=== PATIENT | male | born 1955 | race Caucasian/White ===

== ENCOUNTER 2025-01-14 09:23 | Outpatient (AMB) | payer OTHER, SELFPAY ==
--- NOTE | 2025-01-14 09:24 | MHC.OFFVIS ---
Vital Signs 01/14/25 09:30 Height 5 ft 6 in Weight 194 lb BMI 31.3 BP 141/65 H Blood Pressure Location Rt brachial Position Sitting Respiration 16 Pulse 65 Pulse Source Pulse Oximeter Pulse Oximetry (%) 98 Oxygen Delivery Method Room Air Intake Visit Reasons: Bilateral PDN: Nevro Consult [employer]ush Man Required: No Accompanied by: Life Partner Allergies No Known Allergies Allergy (Verified 01/14/25 09:32) HPI Comments Details: Garfield Jin is very pleasant 69 years old gentleman [facility] [employer] who presents in my office with request to perform Nevro spinal cord stimulator to treat his diabetic polyneuropathy. She is suffering from diabetes for 20 years. She reports neuropathy for the past 7 years. He reports hemoglobin A1c 6.7 at this time. However neuropathy is not getting better. He reports pain in bilateral feet severe enough which prevents him from sleep normally. He is able to do activities of daily living he is able to take care of himself but he can not function normally. He is retired individual he has [facility] [employer] . In terms of tissue damage he describes his pain as pulsing, throbbing, pounding, jumping, flushing, shooting, stabbing, lancinating, sharp, cutting, lacerating, pinching, cramping, crushing, tingling, stinging, dull, sore, hurting, aching, heavy, spreading, radiating, piercing sensation. He tried conservative therapy, including topical applications of NSAIDs such as diclofenac, he is treating his diabetic neuropathy with metformin, he is taking pregabalin 75 mg b.i.d. he tried gabapentin which did not help his pain. He is taking antidepressant medications which helped his pain minimally. He had chiropractic manipulation and acupuncture to help his pain and it did not help his pain. He never received any injections. 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 He is no longer cancer patient. His past surgical history significant for fracture of bilateral wrists which was treated with plates and screws. He denies smoking cigarettes, he denies drinking alcohol on regular basis, he drinks regular coffee twice a day, he denies soda, he admits cannabis once a month. Review of Systems Const All systems reviewed & are unremarkable except as noted in HPI and below ENT Reports Normal hearing present Neuro Reports Normal hearing present, Denies Abnormal speech present, Denies confusion and Denies Sensory deficit (Neuro) Psych Denies confusion Physical Exam Vital Signs: Last Vital Signs Pulse 65 01/14/25 09:30 Resp 16 01/14/25 09:30 BP 141/65 H 01/14/25 09:30 Pulse Ox 98 01/14/25 09:30 Oxygen Delivery Method Room Air 01/14/25 09:30 BMI result Body Mass Index 31.3 Const General: no acute distress; No confusion Orientation/consciousness: patient oriented x3 and No confusion Eyes General: appearance normal, both eyes and all related structures Pupils: Equal, round and reactive pupils present EOM: EOMs intact bilaterally Neck Neck: Yes full ROM Chest Chest palpation & inspection: normal inspection of the chest Resp Effort & Inspection: normal respiratory effort, able to speak in complete sentences, normal respiratory pattern, no audible wheezes and no cough Cardio Jugular venous distension: no JVD GI Inspection: Yes normal to inspection Neuro General: patient oriented x3, gait normal and No confusion Cranial nerves: Yes CN's II-XII intact bilaterally, Yes Equal, round and reactive pupils present, Yes Normal hearing present and Yes Ability to bilaterally elevate shoulders present Speech: No Abnormal speech present Gait exam (Neuro): Normal gait present Motor exam (neuro): 5/5 motor strength present throughout Sensory Exam: No Sensory deficit (Neuro) Extrem General: No pedal edema Psych Speech and movement: Normal speech and movement present Affect: normal affect Attitude: cooperative Thought process: Normal thought process present Thought content: Normal thought content present Insight: Good insight present (Psych) Judgement: Good judgement present (Psych) Assessment & Plan Assessment & Plan (1) Diabetic polyneuropathy: Code(s): E11.42 - Type 2 diabetes mellitus with diabetic polyneuropathy Category: Medical (2) Chronic pain syndrome: Code(s): G89.4 - Chronic pain syndrome Category: Medical Plan This patient was diagnose with cluster B personality disorder as well as history of sexually sit active provocative behavior. Rapidly shifting emotions, obsessive-compulsive disorder, manipulative behavior and impulsivity were also diagnose with the patient.. It remains to be seen whether or not he will be able to pass psychological evaluation however the psychological evaluation page template was given to the patient to provide to his mental health provider to fill it up. If patient will be approved for a trial of Nevro SCS I will schedule him for the procedure as soon as possible. However if there is contraindications for implantable devices for this patient I can offer this patient [employer] application. Coding Level of Care Code New Pt Level 3 (10376) Diagnoses Diabetic polyneuropathy E11.42 Chronic pain syndrome G89.4
[2025-01-14 09:30] VITALS: BP 141/65; PULSE 65; RESP 16; O2SAT 98; BMI 31.3
--- OUTSIDE RECORDS SUMMARY | 2025-01-14 10:21 | XMS_ITS | Data Portability ---
Author Organization [place] [facility] - IP Address [address] [place] [address] Assessment No assessment recorded. Plan of Treatment Reminders Order Date Submit Date Provider Last Modified By Organization Details Last Modified Time Details Appointments [facility] 2031 09:30A M Chemman[facility] _procedur es Not available Not available Not available Lab None recorded. Referral None recorded. Procedures None recorded. Surgeries None recorded. Imaging None recorded. Medication Orders Talicia 10 mg-250 mg-12.5 mg capsule,i mmediate - delay release 2021 022 [facility]/Pharmacy #[id number], [address] [place], [address], 06/08/2021 10:31:14 Patient TargetsNo targets recorded. Patient InstructionsNo instructions recorded. Reason for Referral None Reported. Results Created Date Observation Date Name Description Value Unit Range Abnormal Flag Note LastModifiedBy Organization Detail LastModifiedTime Result Notes None recorded. Medical Equipment None Reported. Allergies No known drug allergies Medications Name Sig Start Date Stop Date Status Note LastModified by Organization Details LastModified Time amoxicillin 500 mg capsule TAKE 2 CAPSULES BY MOUTH TWICE A DAY FOR 14 DAYS. active Not Available Not Available No t Available methocarbamo l 500 mg tablet TAKE 1 TABLET TWICE A DAY BY ORAL ROUTE NEEDED. active Not Available Not Available No t Available atorvastatin 20 mg tablet TAKE 1 TABLET BY MOUTH EVERY DAY active Not Available Not Available No t Available clarithromyc in 500 mg tablet TAKE 1 TABLET BY MOUTH TWICE A DAY FOR 14 DAYS active Not Available Not Available No t Available lisinopril 20 mg tablet active Not Available Not Available Not Available prednisone 20 mg tablet active Not Available Not Available Not Available sertraline 100 mg tablet TAKE 2 TABLETS BY MOUTH EVERY DAY FOR 90 DAYS active Not Available Not Available No t Available omeprazole 40 mg capsule,abby yed release TAKE 1 CAPSULE BY MOUTH EVERY DAY 2021 active Not Available Not Available Not Avai lable amoxicillin 500 mg tablet Take 2 tablets twice a day by oral route for 14 days. 2021 active Not Available Not Available Not Avai lable tamsulosin 0.4 mg capsule TAKE 1 CAPSULE BY MOUTH EVERY DAY FOR 90 DAYS active Not Available Not Available No t Available benzonatate 100 mg capsule TAKE 1 CAPSULE BY MOUTH TWICE A DAY active Not Available Not Available No t Available levothyroxin e 50 mcg tablet TAKE 1 TABLET BY MOUTH EVERY DAY IN THE MORNING active Not Available Not Available No t Available metformin 1,000 mg tablet TAKE 1 TABLET TWICE A DAY BY ORAL ROUTE FOR 90 DAYS. active Not Available Not Available No t Available omeprazole 20 mg capsule,abby yed release TAKE 1 CAPSULE BY MOUTH TWICE A DAY FOR 14 DAYS active Not Available Not Available No t Available budesonide 0.5 mg/2 mL suspension for nebulization INHALE 2 ML VIA NEBULIZER TWICE A DAY active Not Available Not Available Not Available lisinopril 40 mg tablet TAKE 1 TABLET BY MOUTH EVERY DAY active Not Available Not Available No t Available oxycodone 5 mg tablet active Not Available Not Available No t Available escitalopram 20 mg tablet TAKE 1 TABLET BY MOUTH DAILY active Not Available Not Available Not Available fenofibrate 160 mg tablet TAKE 1 TABLET BY MOUTH EVERY DAY active Not Available Not Available No t Available pregabalin 50 mg capsule TAKE 1 CAPSULE BY MOUTH THREE TIMES A DAY FOR 90 DAYS active Not Available Not Available Not Available GaviLyte-G 236 gram-22.74 gram-6.74 gram-5.86 gram oral solution TAKE 4000 ML BY MOUTH. active Not Available Not Available No t Available OneTouch Verio test strips active Not Available Not Available Not Available Trulicity 0.75 mg/0.5 mL subcutaneous pen injector INJECT 0.5 ML EVERY WEEK SUBCUTANEOU SLY FOR 90 DAYS. active Not Available Not Available No t Available Spiriva Respimat 2.5 mcg/actuatio n solution for inhalation INHALE 2 PUFFS INTO THE LUNGS EVERY DAY active Not Available Not Available No t Available Talicia 10 mg-250 mg-12.5 mg capsule,imme diate - delay release Take 4 capsules every 8 hours by oral route for 14 days. 2021 active Not Available Not Available Not Avai kashmir Hawkins Ellipta 200 mcg-62.5 mcg-25 mcg powder for inhalation INHALE 1 PUFF BY MOUTH EVERY DAY active Not Available Not Available No t Available Vitals None Recorded Social History None recorded. Functional Status None recorded. Mental Status None recorded. Family History Nothing Reported. Medical History No medical history recorded. Past Encounters Encounter ID Performer Location Encounter Start Date Encounter Closed Date Diagnosis/Indication Diagnosis SNOMED-CT Code Diagnosis ICD10 Code Diagnosis IMO Codes Diagnosis Note [id number] Myla Brunner MD [facility] [address], [address] [place] [address] 06/08/2021 10:10:14 06/08/2021 10:54:48 Gastroesophageal reflux disease without esophagitis 695032367 K21.9 Helicobact er pylori gastrointestinal tract infection [id number] B96.81 [id number] Myla Brunner MD [facility] [address], [address] [place] [address] 06/29/2021 19:40:13 06/29/2021 19:45:47 Gastroesophageal reflux disease without esophagitis 404875460 K21.9 [id number] Myla Brunner MD [facility] [address], [address] [place] [address] 08/19/2021 17:13:16 08/19/2021 17:17:02 Gastroesophageal reflux disease without esophagitis 734070263 K21.9 Health Concerns Section Related Observation LastModified by Organization Detai ls LastModified Time None Recorded Concern Status LastModified by Organization Details LastModified Time None Recorded Advance Directives Directive None Recorded Payers Insurance Date Sequence Insurance Name Policy Number Policy Mike Covered Member ID Mike Member ID Guarantor Name 07/11/2022 1 [facility] [employer] [facility] ([id number]) [id number] Garfield Huddleston [id number] Garfield Huddleston
--- OUTSIDE RECORDS SUMMARY | 2025-01-14 10:22 | XMS_ITS | Data Portability ---
Author Organization [facility] UROLOGY Address [address] [place] [address] Care Team Providers Care Share Holder Name Role Phone PIEDAD NEGRON Primary Care Provider [phone] PIEDAD NEGRON Referring Provider Assessment Encounter Date Assessment Date Assessment LastModified by Organization Details LastModified Time 06/23/2021 06/23/2021 Instructions, orders, and treatment plan, were discussed and reviewed with the patient during the visit. Follow up appointment tickler created minutes visit time. real-time video communication counseling and coordinating care. Not available 06/23/2021 14:32:09 07/18/2021 07/18/2021 Instructions, orders, and treatment plan, were discussed and reviewed with the patient during the visit. Follow up appointment arranged 30 minutes visit time. telephonic communication counseling and coordinating care. Not available 07/18/2021 11:31:01 08/15/2021 08/15/2021 Reminder again given for colonoscopy. Importance of having colonoscopy for colon cancer screening discussed in detail with patient. Referral already made. Not available 08/15/2021 16:08:05 Plan of Treatment Reminders Order Date Submit Date Provider Last Modified By Organization Details Last Modified Time Details Appointments None recorded. Lab lipid panel, serum 2021 023 [facility], [address], [address], [place], [address], 3 15:56:48 CBC w/ auto diff 2021 023 [facility], [address], [place] [address], [place], [address], 3 15:56:49 HbA1c (hemoglobin A1c), blood 2021 023 [facility], [address], [place] [address], [place], [address], 3 15:56:49 microalbumi n/creatinin e, mass ratio, urine 2021 023 [facility], [address], [place] [address], [place], [address], 3 15:56:50 CMP, serum or plasma 2021 023 [facility], [address], [place] [address], [place], [address], 3 15:56:48 TSH, serum or plasma 2021 023 [facility], [address], [place] [address], [place], [address], 3 15:56:49 T4, free, serum 2021 023 [facility], [address], [place] [address], [place], [address], 3 15:56:49 alpha-1 antitrypsin (aat) mutation, blood/tissu e 2021 022 [facility], [address], [place] [address], [place], [address], 2 13:23:04 Referral None recorded. Procedures None recorded. Surgeries None recorded. Imaging US, upper back - Lipoma like lesion on Rt upper back, next to Right Scapula 2021 022 [facility] (Imaging), [address], [place], [address], 12:05:56 Medication Orders sertraline 200 mg capsule 2021 022 [facility] #[id number], [address] [place], [address], 16:00:29 Patient TargetsNo targets recorded. Patient Instructions Encounter Date Encounter Id Patient Instructions Last Modified By Organization Details Last Modified Time 06/23/2021 [id number] chronic cough: care instructions Not available 06/23/2021 14:26:59 07/18/2021 [id number] chronic cough: care instructions Not available 07/18/2021 11:32:05 08/15/2021 [id number] learning about chronic bronchitis Not available 08/15/2021 16:06:37 high cholesterol : care instructions Not available 08/15/2021 16:06:37 chronic lymphocytic leukemia: care instructions Not available 08/15/2021 16:06:38 type 2 diabetes: care instructions Not available 08/15/2021 16:06:37 high blood pressure: care instructions Not available 08/15/2021 16:06:38 hypothyroidism: care instructions Not available 08/15/2021 16:06:38 08/23/2021 [id number] psoriasis: care instructions [email or web address] Not available 08/23/2021 16:19:05 Reason for Referral None Reported. Results Created Date Observation Date Name Description Value Unit Range Abnormal Flag Note LastModifiedBy Organization Detail LastModifiedTime 07/29/19 22 07/29/2021 CBC(H /H,RB C,WBC ,PLT) white blood cell count 12.3 thous and/u L 3.8-10 .8 high Not Available [facility] [address], [place], [address], 07/29/2021 05:57:08 07/29/19 22 07/29/2021 CBC(H /H,RB C,WBC ,PLT) red blood cell count 4.76 tiff on/uL 4.20-5 .80 normal Not Available [facility] [place] [facility] [address], [place], [address], 07/29/2021 05:57:08 07/29/19 22 07/29/2021 CBC(H /H,RB C,WBC ,PLT) hemoglobin 13.3 g/dL 13.2-1 7.1 normal Not Available [facility] [place] [facility] [address], [place], [address], 07/29/2021 05:57:08 07/29/19 22 07/29/2021 CBC(H /H,RB C,WBC ,PLT) hematocrit 40.8 % 38.5-5 0.0 normal Not Available [facility] [address], [place], [address], 07/29/2021 05:57:08 07/29/19 22 07/29/2021 CBC(H /H,RB C,WBC ,PLT) MCV 85.7 fL 80.0-1 00.0 normal Not Available [facility] [address], [place], [address], 07/29/2021 05:57:08 07/29/19 22 07/29/2021 CBC(H /H,RB C,WBC ,PLT) MCH 27.9 pg 27.0-3 3.0 normal Not Available [facility] [address], [place], [address], 07/29/2021 05:57:08 07/29/19 22 07/29/2021 CBC(H /H,RB C,WBC ,PLT) MCHC 32.6 g/dL 32.0-3 6.0 normal Not Available [facility] [address], [place], [address], 07/29/2021 05:57:08 07/29/19 22 07/29/2021 CBC(H /H,RB C,WBC ,PLT) RDW 12.6 % 11.0-1 5.0 normal Not Available [facility] [address], [place], [address], 07/29/2021 05:57:08 07/29/19 22 07/29/2021 CBC(H /H,RB C,WBC ,PLT) platelet count 134 thous and/u L 140-40 0 low Not Available [facility] [address], [place], [address], 07/29/2021 05:57:08 07/29/19 22 07/29/2021 CBC(H /H,RB C,WBC ,PLT) MPV 10.4 fL 7.5-12 .5 normal Not Available [facility] [address], [place], [address], 07/29/2021 05:57:08 07/29/19 22 07/29/2021 LIPID PNL W/RFL DLDL cholesterol, total 136 mg/dL <200 normal Not Available [facility] [address], [place], [address], 07/29/2021 07:31:46 07/29/19 22 07/29/2021 LIPID PNL W/RFL DLDL HDL cholesterol 37 mg/dL > or = 40 low Not Available [facility] [address], [place], [address], 07/29/2021 07:31:46 07/29/19 22 07/29/2021 LIPID PNL W/RFL DLDL triglyceride s 367 mg/dL <150 high If a non-f astin g speci men was colle cted, consi teresa repea t trigl yceri de testi ng on a fasti ng speci men if clini marly indic ated. Aris kaur et al. J. of Clin. Lipid ol. 2015; 9:129 -169. Not Available [facility] [address] [place], [address], 07/29/2021 07:31:46 07/29/19 22 07/29/2021 LIPID PNL W/RFL DLDL LDL-choleste rol 60 mg/dL _(deo c) normal Refer ence range : <100 Nelly able range <100 mg/dL for prima ry preve ntion ; <70 mg/dL for patie nts with CHD or diabe tic patie nts with > or = 2 CHD risk facto rs. LDL-C is now calcu lated using the Marianna n-Hop kins calcu rian n, which is a valid ated novel metho d provi ding phyllis r accur acy than the Fried coral equat ion in the estim ation of LDL-C . Marianna carney SS et al. LOIDA. 2013; 310(1 9): 2061- 2068 (http ://ed ucati on.Qu Juliette Three Ring. com/f aq/FA Q164) Not Available [facility] [address], [address], 07/29/2021 07:31:46 07/29/19 22 07/29/2021 LIPID PNL W/RFL DLDL chol/HDLC ratio 3.7 (calc ) <5.0 normal Not Available [facility] [address], [place], [address], 07/29/2021 07:31:46 07/29/19 22 07/29/2021 LIPID PNL W/RFL DLDL non HDL cholesterol 99 mg/dL _(deo c) <130 normal For patie nts with diabe inga plus 1 major ASCVD risk facto r, treat ing to a non-H DL-C goal of <100 mg/dL (LDL- C of <70 mg/dL ) is brittanie fuller n. Not Available [facility] [place] [facility] [address], [place], [address], 07/29/2021 07:31:46 07/29/19 22 07/29/2021 COMP META PNL glucose 200 mg/dL 65-99 high Fasti ng refer ence inter cat For someo ne witho ut known diabe inga, a gluco se value >125 mg/dL indic ates that they may have diabe inga and this shoul d be confi rmed with a follo w-up test. Not Available [facility] [place] [facility] [address], [place], [address], 07/29/2021 07:31:47 07/29/19 22 07/29/2021 COMP META PNL urea nitrogen (BUN) 31 mg/dL 7-25 high Not Available [facility] [place] [facility] [address], [place], [address], 07/29/2021 07:31:47 07/29/19 22 07/29/2021 COMP META PNL creatinine 1.39 mg/dL 0.70-1 .25 high For patie nts >49 years of age, the refer ence limit for Creat inine is appro ximat diamond 13% highe r for peopl e ident ified as Afric an-Am alberto n. Not Available [facility] [place] [facility] [address], [place], [address], 07/29/2021 07:31:47 07/29/19 22 07/29/2021 COMP META PNL eGFR non-afr. nicaraguan 53 mL/mi n/1.7 3m2 > or = 60 low Not Available [facility] [place] [facility] [address], [place], [address], 07/29/2021 07:31:47 07/29/19 22 07/29/2021 COMP META PNL eGFR 62 mL/mi n/1.7 3m2 > or = 60 normal Not Available [facility] [address], [place], [address], 07/29/2021 07:31:47 07/29/19 22 07/29/2021 COMP META PNL BUN/creatini ne ratio 22 (calc ) 6-22 normal Not Available [facility] [address], [place], [address], 07/29/2021 07:31:47 07/29/19 22 07/29/2021 COMP META PNL sodium 139 mmol/ L 135-14 6 normal Not Available [facility] [address], [place], [address], 07/29/2021 07:31:47 07/29/19 22 07/29/2021 COMP META PNL potassium 5.0 mmol/ L 3.5-5. 3 normal Not Available [facility] [address], [place], [address], 07/29/2021 07:31:47 07/29/19 22 07/29/2021 COMP META PNL chloride 103 mmol/ L 98-110 normal Not Available [facility] [address], [place], [address], 07/29/2021 07:31:47 07/29/19 22 07/29/2021 COMP META PNL carbon dioxide 26 mmol/ L 20-32 normal Not Available [facility] [address], [place], [address], 07/29/2021 07:31:47 07/29/19 22 07/29/2021 COMP META PNL calcium 9.7 mg/dL 8.6-10 .3 normal Not Available [facility] [address], [place], [address], 07/29/2021 07:31:47 07/29/19 22 07/29/2021 COMP META PNL protein, total 6.9 g/dL 6.1-8. 1 normal Not Available [facility] [address], [place], [address], 07/29/2021 07:31:47 07/29/19 22 07/29/2021 COMP META PNL albumin 4.3 g/dL 3.6-5. 1 normal Not Available [facility] [address], [place], [address], 07/29/2021 07:31:47 07/29/19 22 07/29/2021 COMP META PNL globulin 2.6 g/dL_ (calc ) 1.9-3. 7 normal Not Available [facility] [address], [place], [address], 07/29/2021 07:31:47 07/29/19 22 07/29/2021 COMP META PNL albumin/glob ulin ratio 1.7 (calc ) 1.0-2. 5 normal Not Available [facility] [address], [place], [address], 07/29/2021 07:31:47 07/29/19 22 07/29/2021 COMP META PNL bilirubin, total 0.3 mg/dL 0.2-1. 2 normal Not Available [facility] [address], [place], [address], 07/29/2021 07:31:47 07/29/19 22 07/29/2021 COMP META PNL alkaline phosphatase 47 U/L 35-144 normal Not Available [facility] [place] [facility] [address], [place], [address], 07/29/2021 07:31:47 07/29/19 22 07/29/2021 COMP META PNL AST 28 U/L 10-35 normal Not Available [facility] [place] [facility] [address], [place], [address], 07/29/2021 07:31:47 07/29/19 22 07/29/2021 COMP META PNL ALT 33 U/L 9-46 normal Not Available [facility] [place] [facility] [address], [place], [address], 07/29/2021 07:31:47 07/29/19 22 07/29/2021 TSH TSH 4.08 mIU/L 0.40-4 .50 normal Not Available [facility] [place] [facility] [address], [place], [address], 07/29/2021 07:31:48 07/29/19 22 07/29/2021 T4, FREE T4, free 1.2 NG/dL 0.8-1. 8 normal Not Available [facility] [place] [facility] [address], [place], [address], 07/29/2021 07:31:49 07/29/19 22 07/29/2021 HEMOG LOBIN A1C hemoglobin A1C 7.2 %_of_ total _HGB <5.7 high For someo ne witho ut known diabe inga, a hemog lobin A1c value of 6.5% or great er indic ates that they may have diabe inga and this shoul d be confi rmed with a follo w-up test. For someo ne with known diabe inga, a value <7% indic ates that their diabe inga is well contr olled and a value great er than or equal to 7% indic ates subop timal contr ol. A1c targe ts shoul d be indiv idual ized based on durat ion of diabe inga, age, comor bid condi tions , and other consi derat ions. Curre ntly, no conse nsus exist s tania tillman use of hemog lobin A1c for diagn osis of diabe inga for child nicolás. Not Available [facility] [place] [facility] [address], [place], [address], 07/29/2021 08:18:47 07/29/19 22 07/29/2021 ALB, RAND UR W/CR creatinine, random urine 132 mg/dL 20-320 normal Not Available [facility] [place] [facility] [address], [place], [address], 07/29/2021 18:39:57 07/29/19 22 07/29/2021 ALB, RAND UR W/CR albumin, urine 198.7 mg/dL normal Verif ied by repea t morgan sis. Refer ence Range Not estab lishe d Not Available [facility] [place] [facility] [address], [place], [address], 07/29/2021 18:39:57 07/29/19 22 07/29/2021 ALB, RAND UR W/CR albumin/crea tinine ratio, random urine 1505 mcg/m g_cre at <30 high The ADA defin es abnor malit ies in album in excre tion as follo ws: Album inuri a Categ ory Resul t (mcg/ mg creat inine ) Kristin l to Mildl y incre ased <30 Moder ately incre ased 30-29 9 Sever diamond incre ased > OR = 300 The ADA recom mends that at least two of three speci mens colle cted withi n a 3-6 month perio d be abnor mal befor e consi roxana g a patie nt to be withi n a diagn ostic categ ory. Not Available [facility] [place] [facility] [address], [place], [address], 07/29/2021 18:39:57 07/29/19 22 08/08/2021 AAT AND MUTAT ION ANL A-1 antitrypsin mutation SEE BELOW RESUL T: POSIT PRATEEK FOR ONE COPY OF THE S ALLEL E (MS) INTER PRETA TION: Molec ular morgan sis indic ates that the patie nt is posit prateek for one copy of the S allel e in the alpha -1-an titry psin (PI) gene. If this patie nt has kristin l alpha -1-an titry psin level s, he/sh e shoul d not be at risk for devel oping sympt oms relat ed to alpha -1-an titry psin defic iency . Branden ic testi ng of other at-ri sk relat judson shoul d be consi dered . Branden ic couns eling may also be benef icial for this patie nt and other membe rs of his/h er famil y. Labor atory testi ng super vised and resul ts monit ored by Vidal willett, Ph.D. , FACMG , HCLD, CGMBS . Alpha -1-an titry psin defic iency is a relat ively commo n autos omal reces sive condi tion. The two most commo n defic iency allel es in the alpha -1-an titry psin gene (prot ease inhib itor locus , PI) are desig nated PI*Z and PI*S, and the kristin l allel e is desig nated PI*M. The PI*Z/ PI*Z, PI*S/ PI*Z, and PI*S/ PI*S genot ypes assoc iated with decre ased serum PI level s that are equiv alent to appro ximat diamond 10-20 %, 35-40 %, and 50-60 % of kristin l, respe ctive ly. The PI*Z/ PI*Z and PI*S/ PI*Z genot ypes are repor ale to be assoc iated with an incre ased risk of liver disea se in child duff, and chron ic obstr uctiv e pulmo nary disea se (COPD ) and emphy sema in adult life. The PI*M/ PI*Z, and PI*M/ PI*S genot ypes are also assoc iated with decre ased serum PI level s but these level s, and the PI level s assoc iated with the PI*S/ PI*S genot ype, are appar ently adequ ate to prote ct the lungs in the vast major ity of indiv idual s. Indiv idual s with the PI*M/ PI*Z genot ype may have decre ased pulmo nary funct ion, and may be at incre ased risk for COPD, espec ially if they smoke . It shoul d be noted that serum alpha -1-an titry psin level s can be induc ed by a wide varie ty of condi tions that inclu de pregn stephen, infec tion, numer ous infla mmato ry condi tions , cance r, and liver disea se. Level s of alpha -1-an titry psin may be reduc ed by other condi tions . There fore, immun ologi deo and funct ional deter minat ions of serum alpha -1-an titry psin level s may not corre late with the indiv idual 's PI genot ype. The PI*Z, PI*S, and PI*M allel es are detec ale by multi plex polym erase chain react ion (PCR) ampli ficat ion of speci fic regio ns of the PI gene, follo wed by restr ictio n enzym e diges tion and capil garrick elect ropho resis . This assay does not test for the prese nce of other mutat ions withi n the alpha -1-an titry psin gene or non-g eneti c cause s of alpha -1-an titry psin defic iency . Altho ugh rare, false posit prateek or false negat prateek resul ts may occur . All resul ts shoul d be inter prete d in the debra xt of clini deo findi ngs, relev ant histo ry, and other labor atory data. Healt h care provi ders may also conta ct your local [facility] branden ic couns elor or call 5 [phone] INFO [phone]) for lamonte tance with the inter preta tion of these resul ts. This test was devel oped and its morgan tical perfo rmanc e romario cteri stics have been deter mined by [facility] Pickens . It has not been clear ed or appro naomi by FDA. This assay has been valid ated pursu ant to the CLIA regul ation s and is used for clini deo purpo ses. Not Available [facility] [place] [facility] [address], [address], 08/08/2021 21:38:06 07/29/19 22 08/08/2021 AAT AND MUTAT ION ANL clinical indication NON GIVEN Not Available [facility] [place] [facility] [address], [address], 08/08/2021 21:38:06 07/29/19 22 08/08/2021 AAT AND MUTAT ION ANL referring physician WM NEGRON Not Available [facility] [place] [facility] [address], [address], 08/08/2021 21:38:06 07/29/19 22 08/08/2021 AAT AND MUTAT ION ANL tmbuk-2-bspa trypsin qn 121 mg/dL 83-199 normal Not Available [facility] [place] [facility] [address], [address], 08/08/2021 21:38:06 08/26/19 22 08/25/2021 XR, knee, 4 or more view [facility] [address] [address] [phone] Usama mock Name: [facility] Record #: [id number] Addres s: [address] Accoun t#: [id number] City/S [place] ip: [place] [address]: Aria Garcia MD Phone: Insura nce: [facility] Subsid iz ed /Ag e/Sex: 03/10/ 1954/ 6/M Self Pay Admit/ Reg Date: Orderi ng Dr: Aria Garcia MD Locati on: DI.NV/ PCP: Wm Negron MD Date of Servic e: Order (s): XR knee RT 4V CPT Code: 60276 Report Number : [id number] Reason for Exam: PAIN OF RT KNEE JOINT Exam: XR knee RT 4V Indica tion: PAIN OF RT KNEE JOINT Compar teersa: None Findin gs: AP and latera l views are weight bearin g. There is a small knee joint effusi on. There is severe narrow ing of the medial compar tment of the knee with subcho ndral sclero sis. There is mild varus angula tion of the knee. There is modera te spurri ng latera lly with slight narrow ing of the joint there. There is modera te spurri ng at the patell ofemor al compar tments with narrow ing at the site of the spurs. IMPRES KEELY: SEVERE OSTEOA RTHRIT IS. Dictat ed By: Samuel cobb MD 1125 Signed By: Nadine Jhons MD 1132 TD/TT: 1125 Tech: [id number] cc: [id number] 1; TOMJOSÉ* Aria Garcia MD; Wm Negron MD [facility] [address], [place], [address] 08/25/2021 16:01:52 08/26/19 22 08/23/2021 XR, knee, 4 or more view No observ ation record ed. [email or web address] [facility] (Imaging) [address] [place] [address], [place], [address], 08/25/2021 13:50:25 09/02/19 22 09/01/2021 US, upper back [address] [place] [address] [phone] Patien t Name: [facility] Record #: [id number] Addres s: [address] Accoun t#: [id number] City/S sanz/Z ip: [place] [address]: Wm Noble Phone: Insura nce: [facility] Subsid iz ed /Ag e/Sex: 4/M Self Pay Admit/ Reg Date: Orderi ng Dr: Wm Negron MD Locati on: DI.USN V/ PCP: Wm Negron MD Date of Servic e: Order (s): US soft tissue upper back CPT Code: 96780 Report Number : [id number] Reason for Exam: LIPOMA OF BACK Ultras ound soft tissue upper back Indica tion: Lipoma on the back Findin gs: No eviden ce of soft tissue mass. No fluid collec tion. Impres keely: No soft tissue abnorm ality seen in the right upper back Dictat ed By: Shlomo Shaikh MD 1158 Signed By: Shlomo Shaikh MD 1205 TD/TT: 1158 Tech: [id number] cc: [id number] 1* Wm Negron MD [facility] Rad [address], [place], [address] 09/01/2021 17:11:27 Result Notes Documentation Provider Name and Address Organization Details Recorded Time Xr, Knee, 4 Or More View : [address] [address] Patient Name: [facility] Record#: [id number] Address: [address] City/State/Zip: [place] [address]: Aria Garcia MD Insurance: [facility] [employer] Subsidiz ed /Age/Sex: 1955/66/M Self Pay Admit/Reg Date: 08/23/[address]: Aria Garcia MD Location: .[place]/ PCP: Piedad Negron MD Date of Service: 08/23/21 Order (s): XR knee RT 4V CPT Code: 24235 Report Number: [id number] Reason for Exam: PAIN OF RT KNEE JOINT Exam: XR knee RT 4V Indication: PAIN OF RT KNEE JOINT Comparison: None Findings: AP and lateral views are weightbearing. There is a small knee joint effusion. There is severe narrowing of the medial compartment of the knee with subchondral sclerosis. There is mild varus angulation of the knee. There is moderate spurring laterally with slight narrowing of the joint there. There is moderate spurring at the patellofemoral compartments with narrowing at the site of the spurs. IMPRESSION: SEVERE OSTEOARTHRITIS. Dictated By: Jenanette Yoo MD 08/25/21 1125 Signed By: Jeannette Yoo MD 08/25/21 1132 TD/TT: 08/25/21 1125 Tech: [id number] cc: [id number]; TOMJOSÉ* Aria Garcia MD; MD Piedad Daniels MD [address] [place] [address], [phone] 08/25/2021 16:01:52 Problems Name Problem SNOMED Code Status Onset Date Resolution Date Notes Provider Name and Address Organization Details Recorded Time Uncontro lled type 2 diabetes mellitus 875897615 Active 2021 Not Available [facility] 2 16:00:40 [facility] hyperten keely 23075748 Active 2021 Not Available [facility] 2 16:00:40 Depressi ve disorder 57437620 Active 2021 Not Available [facility] 2 16:00:40 Chronic bronchit is 36158095 Active 2021 PFT done on 05/10/2021 Not Available [facility] 2 16:00:40 Hypothyr oidism 49191791 Active 2021 Not Available [facility] 2 16:00:40 Hyperlip idemia 99929247 Active 2021 [facility] 16:00:40 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 Procedures Surgical History Date Name Laterality Status Provider Name and Address Organization Details Recorded Time 2 colonoscopy completed Piedad Negron MD [address] [place] [address], [id number], [facility] 05/24/2021 13:10:50 2 Upper gi endoscopy performed completed Piedad Negron MD [address] [place] [address], [id number], [facility] 05/24/2021 13:11:39 1 other completed Brianna See [facility] 03/15/19 22 10:44:09 2 Other bone graft microvasc completed Brianna See [place] - [facility] - [facility] 2 10:43:31 Imaging Results None recorded. Procedure Notes None recorded. Medical Equipment None Reported. Allergies No known drug allergies Medications Name Sig Start Date Stop Date Status Note LastModified by Organization Details LastModified Time methocarb venita 500 mg tablet TAKE 1 TABLET TWICE A DAY BY ORAL ROUTE NEEDED. 2021 active Not Available Not Available Not Avai lable atorvasta tin 20 mg tablet Take 1 tablet every day by oral route for 90 days. 2021 active Not Available Not Available Not Avai lable meloxicam 15 mg tablet TAKE 1 TABLET BY MOUTH EVERY DAY DIRECTED 2021 active Not Available Not Available Not Avai lable lisinopri l 20 mg tablet 1 daily 03/15 completed Not Available Not Available Not Available prednison e 20 mg tablet 03/15 completed Not Available Not Available Not Available sertralin e 100 mg tablet Take 2 tablets every day by oral route for 90 days. 2021 active Not Available Not Available Not Avai lable tamsulosi n 0.4 mg capsule TAKE 1 CAPSULE BY MOUTH EVERY DAY 2021 active Not Available Not Available Not Avai lable benzonata te 100 mg capsule TAKE 1 CAPSULE BY MOUTH TWICE A DAY 2021 active Not Available Not Available Not Avai lable levothyro xine 50 mcg tablet TAKE 1 TABLET BY MOUTH EVERY DAY IN THE MORNING 2021 active Not Available Not Available Not Avai lable metformin 1,000 mg tablet TAKE 1 TABLET BY MOUTH TWICE A DAY 2022 active Patient needs to be seen for further refills Not Available Not Available Not Available budesonid e 0.5 mg/2 mL suspensio n for nebulizat ion Inhale 2 mL twice a day by nebuliza tion route. 2021 active Not Available Not Available Not Avai lable lisinopri l 40 mg tablet Take 1 tablet every day by oral route. 2021 active Not Available Not Available Not Avai lable oxycodone 5 mg tablet 03/15 completed Not Available Not Available Not Available escitalop angelica 20 mg tablet Take 1 tablet every day by oral route for 90 days. 06/23 completed Advised patient to natalie chang within next 1 week (as of 05/2021) Not Available Not Available Not Available fenofibra te 160 mg tablet Take 1 tablet every day by oral route for 90 days. 2021 active Not Available Not Available Not Avai lable pregabali n 50 mg capsule TAKE 1 CAPSULE BY MOUTH THREE TIMES A DAY FOR 90 DAYS 2022 active Not Available Not Available Not Avai lable Perforomi st 20 mcg/2 mL solution for nebulizat ion Inhale 2 mL twice a day by inhalati on route. 2021 active Not Available Not Available Not Avai lable OneTouch Verio test strips three times per week active Not Available Not Available No t Available Trulicity 0.75 mg/0.5 mL subcutane ous pen injector Inject 0.5 mL every week by subcutan eous route for 90 days. 2021 active Not Available Not Available Not Avai lable Spiriva Respimat 2.5 mcg/actua tion solution for inhalatio n Inhale 2 puffs every day by inhalati on route. active Not Available Not Available No t Available Trelegy Ellipta 200 mcg-62.5 mcg-25 mcg powder for inhalatio n Inhale 1 puff every day by inhalati on route. 2021 active Not Available Not Available Not Avai lable sertralin e 200 mg capsule Take 1 capsule every day by oral route for 90 days. 07/19 completed Not Available Not Available Not Available Vitals Date Recorded Body height Provider Name an d Address Organization Details Last Updated DateTime 07/18/2021 167.64 cm Rox Del Rosario [facility] 11/2021 11:07:49 Date Recorded Body height Body mass index (BMI) Body weight Body temperature Oxygen saturation Oxygen saturation in Arterial blood by Pulse oximetry Heart rate Systolic And Diastolic Provider Name and Address Organization Details Last Updated DateTime 2 167.64 cm 31 kg/m2 88708.7 4 g 97.1 [degF] 96 % 96 % 74 /min 128/72 mm[Hg] Brianna See [facility] 2 13:17:27 Date Recorded Body height Body mass index (BMI) Body weight Heart rate Oxygen saturation Oxygen saturation in Arterial blood by Pulse oximetry Body temperature Provider Name and Address Organization Details Last Updated DateTime 2 167.64 cm 31 kg/m2 69692.7 4 g 71 /min 99 % 99 % 96.9 [degF] Colt Kenny [facility] 2 13:50:52 Social History Question Answer Notes LastModified by Organization Details LastModified Time Tobacco Smoking Status Never Smoker Brianna Esa vásquez [facility] 03/15/2021 10:42:10 What Is Your Level Of Caffeine Consumption? Moderate Information not available 03/15/2021 What Type Of Diet Are You Following? REGULAR Information not available 03/15/2021 Which Illicit Or Recreational Drugs Have You Used? Marijuanna Information not available 03/15/2021 What Is The Highest Grade Or Level Of School You Have Completed Or The Highest Degree You Have Received? [id number] Information not available 03/15/2021 Last HbA1C Test 07/29/2021 7.2 [RBS 200] Inform ation not available 07/30/2021 Last LDL-C 07/29/2021 60 [HDL 37; Triglyceride 367] Information not available 07/30/2021 Last Nephropathy 07/29/2021 Albumin/creatin ine Ratio 1505 Information not available 07/30/2021 Last Diabetic Eye Exam 05/24/2021 Myla Brunner MD [10 Years Follow Up] Information not available 05/24/2021 Last TSH 07-29-2021 4.08 [FT4- 1.2] Informati on not available 07/30/2021 What Was The Date Of Your Most Recent Tobacco Screening? 03/15/2021 Information not available 03/15/2021 How Many Children Do You Have? 2 Information not available 03/15/2021 What Is Your Relationship Status? Information not available 03/15/2021 Sex: Male Functional Status Question Answer Note LastModified by Organizat ion Details LastModified Time Do you use any illicit or recreational drugs? Yes Occasional marijuana Information not available 03/15/2021 What is your level of alcohol consumption? Occasional Information not available 03/15/2021 What is your exercise level? Occasional Information not available 03/15/2021 Mental Status None recorded. Family History Relationship Description Onset Age of this Age Resolved Age Notes LastModified by Organization Details LastModified Time Father Malignant neoplastic disease 71 deceas ed Not available 03/15/2021 11:06:17 Sister Hypertensive disorder Branden Not available 2021 11:06:32 Medical History Condition Response DIABETES Y hyperlipidemia Y HYPERTENSION Y hepatitis Immunizations Vaccine Type Date Status Note Provider Nam e and Address Organization Details Recorded Time Influenza, adjuvanted, quadrivalent, PF 2 completed Brianna vásquez [facility] 03/15/2021 11:30:29 Pneumococcal conjugate PCV 13 2 completed Brianna vásquez [facility] 03/15/2021 11:30:06 COVID-19, mRNA, LNP-S, PF, 30 mcg/0.3 mL dose 1 completed Not Available [facility] 05/24/2021 16:00:40 COVID-19, mRNA, LNP-S, PF, 30 mcg/0.3 mL dose 1 completed Not Available [facility] 05/24/2021 16:00:40 Past Encounters Encounter ID Performer Location Encounter Start Date Encounter Closed Date Diagnosis/Indication Diagnosis SNOMED-CT Code Diagnosis ICD10 Code Diagnosis IMO Codes Diagnosis Note [id number] MD [facility] [address] [facility] [place] [address] 09/07/2020 09:47:01 09/07/2020 10:04:48 Abdominal pain 73489383 R10.9 CT of abdo men abnormal 8988519403 2271580 R93.5 Liver func tion tests outside reference range 760778351 R94.5 [id number] [facility] [address] [place] [address] 03/15/2021 10:23:32 03/15/2021 12:21:28 Active or passive immunization 747749201 Z23 -seasonal flu vaccine given today-Prev kaylen 13 given today-amalia hines advised patient to get COVID-19 booster vaccine Screening for malignant neoplasm of colon 069380038 Z12.11 March 15, 2021: Patient is new to my service. No previous medical record available at this time.Isa roach states that almost 11 years back in 2009, he had his last colonoscop y done in [facility].Importa rosangela of having colonoscop y every 10 years discussed in detail with patient. Patient understand s.Referral made today. [facility] ed type 2 diabetes mellitus 358533635 E11.65 March 15, 2021:Isa roach is new to my service.No previous medical record available at this time.Isa roach states that his last A1c was 7.4.Even though, patient is not fasting today, I will do labs. Patient also states that due to his current living situation and not having any car, it will be difficult for him to come back for repeat labs.Scott chang current medication .Referral made for diabetic eye exam.Empha sized healthy diet, daily exercise.R outine foot care.I am planning to follow patient back in 1-2 months. Essential hypertension [id number] I10 March 15, 2021: Patient is new to my service. No previous medical record available at this time.Isa roach's blood pressure noted significan t elevated. Patient also states that last encounter at his previous PCP's office, his blood pressure was also on higher side.Plan to increase lisinopril from 20 mg daily to 40 mg daily. New script faxed to his pharmacy.E mphasized healthy diet, daily light exercise.R outine labs today.I will follow him back in 1-2 months. Depressive disorder 3548 9007 F33.9 March 15, 2021: Patient is new to my service. No previous medical record available at this time.Isa roach is on Lexapro. No acute issue. Doing well. Does feel faxed. Chronic bronchitis 09472 004 J42 March 15, 2021: Patient is new to my service. No previous medical record available at this time.Isa roach states that he has had multiple PFTs in the past at [facility]. [facility]. Referral made for PFT.Also I will take an opinion from Dr. Abrams on our expert pulmonolog ist.The meantime, I will continue Omar and Ben Harley. Hypothyroidism 03257274 E03.9 March 15, 2021: Patient is new to my service. No previous medical record available at this time.Routi ne labs today.Cont inue current medication . Hyperlipidemia 73544793 E78.5 March 15, 2021: Patient is new to my service. No previous medical record available at this time.Isa roach states that his lipid profile mainly significan t for elevated triglyceri de.Plan to repeat labs today even though, he is not fasting.Parag morales is on atorvastat in and fenofibrat e. Refill faxed.Emph asized healthy diet, daily light exercise.W ill follow. Benign pro static hyperplasia without outflow obstruction 235734345 N40.0 March 15, 2021: Patient is new to my service. No previous medical record available at this time.Isa roach is on Flomax which he takes daily as directed. Refill faxed.No issue at present. Hepatitis C screening 41 4684547 Z11.59 Vitamin D deficiency 347 70852 E55.9 Peripheral neuropathic pain 373346244 M79.2 March 15, 2021: Patient is new to my service. No previous medical record available at this time.Doing very well with Lyrica. Refill faxed.Meth ocarbamol as needed. [id number] Piedad Negron MD [facility] [address] [facility], [address] [place] [address] 04/26/2021 09:54:19 04/26/2021 10:52:02 Uncontrolled type 2 diabetes mellitus 493747024 E11.65 April 26, 2021:López nish A1c 7.7.Usama mock is relatively new to my service. No previous medical record available at this time. Patient actually moved here from [facility] 2 years back.Empha sized again for diabetic exam, referral already made.Plan to continue current medication which includes metformin total 2000 mg daily and Trulicity 0.75 mg weekly. Routine foot care. Emphasized healthy diet, daily light exercise. Weight reduction. March 15, 2021:Isa roach is new to my service.No previous medical record available at this time.Isa roach states that his last A1c was 7.4.Even though, patient is not fasting today, I will do labs. Patient also states that due to his current living situation and not having any car, it will be difficult for him to come back for repeat labs.Scott charlene current medication .Referral made for diabetic eye exam.Empha sized healthy diet, daily exercise.R outine foot care.I am planning to follow patient back in 1-2 months. Essential hypertension 47616581 I10 April 26, 2021:Lisin opril was increased from 20 mg daily to 40 mg daily last month on 03/15/2021 . Blood pressure running within normal range. Patient is tolerating the medication well. Emphasized healthy diet, daily light exercise and weight reduction. Will follow. March 15, 2021:Isa roach is new to my service.No previous medical record available at this time.Isa roach's blood pressure noted significan t elevated. Patient also states that last encounter at his previous PCP's office, his blood pressure was also on higher side.Plan to increase lisinopril from 20 mg daily to 40 mg daily. New script faxed to his pharmacy.E mphasized healthy diet, daily light exercise.R outine labs today.I will follow him back in 1-2 months. Hyperlipidemia 39632439 E78.5 April 26, 2021:Recen t labs showed LDL 97, HDL 37, triglyceri db 565.Usama mock is on fenofibrat e 160 mg daily and atorvastat in 20 mg daily. No change in medication . Continue current medication . Emphasized healthy diet, daily light exercise. March 15, 2021:Isa roach is new to my service.No previous medical record available at this time.Isa roach states that his lipid profile mainly significan t for elevated triglyceri de.Plan to repeat labs today even though, he is not fasting.Parag morales is on atorvastat in and fenofibrat e. Refill faxed.Emph asized healthy diet, daily light exercise.W ill follow. Chronic bronchitis 80069 004 J42 April 26, 2021:Chron ic. Patient states that he was seen by multiple pulmonolog ist and had multiple tests done in the past in [facility] and also in [facility]. I do not have any of those records. Currently, patient is on Spiriva and Tessalon part, still coughing constantly . X-ray ordered. Referral also made for PFT which has not been done yet. Patient is going to see our expert pulmonolog ist in 2 weeks on 05/10/2021 . March 15, 2021:Isa roach is new to my service.No previous medical record available at this time.Isa roach states that he has had multiple PFTs in the past at [facility]. He even was seen by pulmonolog ist at [facility], Oskar noble.Again, no record available. Referral made for PFT.Also I will take an opinion from Dr. Abrams on our expert pulmonolog ist.The meantime, I will continue Spiriva and Tessalon Perles. Hypothyroidism 90982971 E03.9 April 26, 2021:sIa roach is on levothyrox ine 50 mcg daily. Recent labs showed TSH 3.45 and free T4 1.7. Continue current medication . March 15, 2021:Isa roach is new to my service.No previous medical record available at this time.Routi ne labs today.Cont inue current medication . Peripheral neuropathic pain 319185761 M79.2 April 26, 2021:Isa roach is relatively new to my service.No previous medical record available at this time.Doing very well with Lyrica. Refill faxed.Meth ocarbamol as needed. Depressive disorder 3548 9007 F33.9 April 26, 2021:Isa roach is on Lexapro. No acute issue. Doing well. Benign pro static hyperplasia without outflow obstruction 172341331 N40.0 April 26, 2021:Isa roach is on Flomax which he takes daily as directed.P SA 0.93.No issue at present. Vitamin D deficiency 347 92285 E55.9 April 26, 2021: 27.Advised patient to take vitamin-D 2000 units daily. Chronic ly mphoid leukemia, disease 99526921 C91.90 April 26, 2021:Chron ic, patient is followed by Dr. Sofía Mckeon at [facility] [id number] Juani Abrams MD [facility] [address] [facility] [place] [id number] 05/10/2021 13:31:42 05/10/2021 15:53:03 Chronic cough 99861486 R05.3 His respirator y symptoms have been for 30 years now whne he was in his 30s.He had a bronchosco py 20 years ago and he was told that he has damaged broncholes HE suffers with a chronic cough and his new PCP referred him hereHE believes that it was caused by heavy marijuana smoking and he quit just a few years agoNow he is sensitive to changes in the environmen t such as a gentle breeze or a fan HE has tried many inhalers and currently he is taking two typesHE does not get chest painHe attributes shortness of breath to his weightHE retires because of the COVID pandemicHe is very inactive in the winterHe also broke both wrists which also limits what he can do HE can cough to the point of throwing upHe can get dizzy and his face turns red when he has coughing fitsHe can get close to blacing out HE is taking Spiriva and albuterol HFAAlbuter ol helps somewhatSp iriva is less noticeable His cough can be productive There is not time of the day tendencyHE does cough more in the winter but anytime of the year, htere is a temperatur e change or airflow change, he can coughColdl iquids can cuas him ot have a coughing attack I will trial him on Trelegy Ellipta 200 mcg and see if that helps his cough better tahn spiriva. 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 Reviewed his chest x-ray with him which shows some evidence of diaphragma tic flattening . I also reviewed his PFTs which show a mixed obstructiv e and restrictiv e ventilator y impairment which goes along with his weight and his COPD. I plan to follow-up with him in a month earlier as needed. [id number] Piedad Negron MD [facility] [address] [facility], [address] [place] [address] 05/17/2021 09:43:38 05/17/2021 11:50:48 Depressive disorder 52042689 F33.9 May 17, 2021: Until done, patient was doing well with Lexapro 20 mg daily. For the last 1 week, patient feels more anxious and stressed. He also feels like that he has OCD. He had couple of conflict and arguments with his partner.Ov er the weekend, patient actually started taking 60 mg of Lexapro daily and he called our office yesterday. I immediatel y told him not to take Lexapro 60 mg as the high as does his 20 mg max. Restarted taking 20 mg of Lexapro, but feels like that is not working at all. Plan to discontinu e Lexapro gradually. I do tell patient to take half tablet of Lexapro for 3 days, then stop. The meantime, plan to put patient on sertraline 100 mg daily. Common adverse reviewed and discussed with patient. Also I think, patient will benefit by having counseling and therapy. Informatio n regarding local therapist and counselor given to patient over the phone.I am planning to follow patient back in 2 weeks. [id number] Piedad Negron MD [facility] [address] [facility], [address] [place] [address] 06/02/2021 07:40:02 06/02/2021 12:01:27 Depressive disorder 72931926 F33.9 June 02, 2021:Two weeks back, patient was complainin g worsening anxiety depression and OCD. Prior to that, he has symptoms was reasonably well controlled with Lexapro 20 daily. Lexapro was weaned of gradually from 05/17/2021 , and patient was put on sertraline 100 mg daily on 05/17/2021 . Today on 06/02/2021 , during encounter, patient states that since he started taking his sertraline 100 mg, he notices very minimal improvemen t. Patient is asking whether we can increase the medication on not.-I am planning to increase sertraline from 100 mg daily to 200 mg daily.-aga in advised patient to talk to and find a counselor therapist. Patient lost the informatio n that I gave last week. Informatio n regarding local therapist again given to patient with phone numbers. -plan to follow him back in 2-4 weeks. May 17, 2021:Until now, patient was doing well with Lexapro 20 mg daily. For the last 1 week, patient feels more anxious and stressed. He also feels like that he has OCD. He had couple of conflict and arguments with his partner.Ov er the weekend, patient actually started taking 60 mg of Lexapro daily and he called our office yesterday. I immediatel y told him not to take Lexapro 60 mg as the high as does his 20 mg max. Restarted taking 20 mg of Lexapro, but feels like that is not working at all.Plan to discontinu e Lexapro gradually. I do tell patient to take half tablet of Lexapro for 3 days, then stop.The meantime, plan to put patient on sertraline 100 mg daily. Common adverse reviewed and discussed with patient.Al so I think, patient will benefit by having counseling and therapy. Informatio n regarding local therapist and counselor given to patient over the phone.I am planning to follow patient back in 2 weeks. [id number] Juani Abrams MD [facility] [address] [facility] [place] [id number] 06/14/2021 11:07:16 06/14/2021 12:05:39 Chronic cough 01885756 R05.3 His cough is about the same The Trelegy did not do much ( nothing big ) When he gets his coughing attacks he gets badHe can get very light headed and dizzyHe has two to five such episodes per day He uses albuterol whenever he has a coughing attack HE took Trelegy once a day My plan is to stop the Trelegy and swithc him to Budesonide nebullizer 0.5 mg plus Perforomis t nebulizer treatment bid to see if he responds to it better. I will check him for alpha-1 antitrypsi n deficiency as he does have a family history and we will check for that. I will followup with him in 1 month. [id number] Piedad Negron MD [facility] [address] [facility], [address] [place] [address] 06/23/2021 14:13:53 06/23/2021 16:07:29 Depressive disorder [id number] F33.9 June 23, 2021:3 weeks back, sertraline was increased from 100 mg to 200 mg daily.Ree ent actually doing well with 200 mg of sertraline . Refill faxed. Patient does have anxiety and depression , both are improved. Of note, patient stop taking Lexapro earlier this year on May 2021 due to ineffectiv eness. June 02, 2021:Two weeks back, patient was complainin g worsening anxiety depression and OCD. Prior to that, he has symptoms was reasonably well controlled with Lexapro 20 daily. Lexapro was weaned of gradually from 05/17/2021 , and patient was put on sertraline 100 mg daily on 05/17/2021 . Today on 06/02/2021 , during encounter, patient states that since he started taking his sertraline 100 mg, he notices very minimal improvemen t. Patient is asking whether we can increase the medication on not.-I am planning to increase sertraline from 100 mg daily to 200 mg daily.-aga in advised patient to talk to and find a counselor therapist. Patient lost the informatio n that I gave last week. Informatio n regarding local therapist again given to patient with phone numbers.-beryl [place]ledo to follow him back in 2-4 weeks. May 17, 2021:Until now, patient was doing well with Lexapro 20 mg daily. For the last 1 week, patient feels more anxious and stressed. He also feels like that he has OCD. He had couple of conflict and arguments with his partner.Ov er the weekend, patient actually started taking 60 mg of Lexapro daily and he called our office yesterday. I immediatel y told him not to take Lexapro 60 mg as the high as does his 20 mg max. Restarted taking 20 mg of Lexapro, but feels like that is not working at all.Plan to discontinu e Lexapro gradually. I do tell patient to take half tablet of Lexapro for 3 days, then stop.The meantime, plan to put patient on sertraline 100 mg daily. Common adverse reviewed and discussed with patient.Al so I think, patient will benefit by having counseling and therapy. Informatio n regarding local therapist and counselor given to patient over the phone.I am planning to follow patient back in 2 weeks. Helicobact er pylori gastrointestinal tract infection [id number] B96.81 June 23, 2021: Patient had upper endoscopy done last month on 05/24/2021 , and biopsy came back positive for H pylori.Dr. Brunner put patient on triple therapy. Patient assured me that he is still taking amoxicilli n, clarithrom ycin, omeprazole , and doing well. Occasional diarrhea, but overall he is tolerating the medication well. Appreciate Dr. Brunner' s patient care and consult. Chronic cough [id number] R 05.3 June 23, 2021: Closely followed pathology Dr. Abrams. He does have a strong family history of alpha-1 interested deficiency . Plan to do lab, and will follow. Appreciate Dr. Abrams's patient care and consult. PREVIOUS ENCOUNTER: His cough is about the same The Trelegy did not do much ( nothing big )When he gets his coughing attacks he gets badHe can get very light headed and dizzyHe has two to five such episodes per day He uses albuterol whenever he has a coughing attack HE took Trelegy once a day My plan is to stop the Trelegy and swithc him to Budesonide nebullizer 0.5 mg plus Perforomis t nebulizer treatment bid to see if he responds to it better. I will check him for alpha-1 antitrypsi n deficiency as he does have a family history and we will check for that. I will followup with him in 1 month. [id number] Juani Abrams MD [facility] [address] [place] [address] [place] [phone] 07/18/2021 11:01:40 07/25/2021 14:11:54 Chronic cough [id number] R05.3 He feels that there is some improvemen t in his cough.HE was taken off Trelegy and switched to budesonide solution and perforomis t benulizer solutionsH e is only using those once a day in the morning He feels that taking these twice a day is an imposition He will try to nebulize the medication atleast once a day and i will follo;up with him in 6 months. [id number] Piedad Negron MD [facility] [place] [facility] [address] [facility], [address] [place] [phone] 07/28/2021 10:19:10 07/28/2021 11:01:05 [id number] Piedad Yvrose Negron MD [facility] [address] [facility], [address] [place] [address] 08/15/2021 13:08:50 08/15/2021 13:52:43 Lipoma of back [id number] D17.1 August 15, 2021: Location right upper back. Patient states that this swelling develops after he had a fall almost 2 weeks back. I doubt that this swelling is from the fall. To me it looks like lipoma. Plan to follow-up with ultrasound . Chronic bronchitis [id number] J42 August 15, 2021:At present, patient is closely followed by pulmonolog ist Dr. 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 Advised patient to follow-up with Dr. Abrams. April 26, 2021:Chron ic.Patient states that he was seen by multiple pulmonolog ist and had multiple tests done in the past in [facility] and also in [facility]. I do not have any of those records.Cu rrently, patient is on Spiriva and Tessalon part, still coughing constantly .X-ray ordered.Re ferral also made for PFT which has not been done yet.Usama mock is going to see our expert pulmonolog ist in 2 weeks on 05/10/2021 . March 15, 2021:Isa roach is new to my service.No previous medical record available at this time.Isa roach states that he has had multiple PFTs in the past at [facility]. He even was seen by pulmonolog ist at [facility], Oskar noble.Again, no record available. Referral made for PFT.Also I will take an opinion from Dr. Abrams on our expert pulmonolog ist.The meantime, I will continue Spiriva and Tessalon Perles. Uncontroll ed type 2 diabetes mellitus [id number] E11.65 August 15, 2021:Recen t A1c 7.2. Doing better comparing with last time.Empha sized again for diabetic exam, referral already made. Patient actually states that i t is difficult for him to go to any appointmen t due to transporta tion issues .Plan to continue current medication which includes metformin total 2000 mg daily and Trulicity 0.75 mg weekly.Rou tsering foot care.Empha sized healthy diet, daily light exercise. Weight reduction. March 15, 2021:Isa roach is new to my service.No previous medical record available at this time.Isa nt states that his last A1c was 7.4.Even though, patient is not fasting today, I will do labs. Patient also states that due to his current living situation and not having any car, it will be difficult for him to come back for repeat labs.Scott chang current medication .Referral made for diabetic eye exam.Empha sized healthy diet, daily exercise.R outine foot care.I am planning to follow patient back in 1-2 months. Chronic ly mphoid leukemia, disease [id number] C91.90 April 26, 2021:Chron ic, patient was followed by Dr. Sofía Mckeon at [facility].I actually advised patient here locally to see Dr. sarah. Referral already made. Depressive disorder [id number] F33.9 August 15, 2021:3 weeks back, sertraline was increased from 100 mg to 200 mg daily.Ree ent actually doing well with 200 mg of sertraline .Patient does have anxiety and depression , both are improved.O f note, patient stop taking Lexapro earlier this year on May 2021 due to ineffectiv eness. June 02, 2021:Two weeks back, patient was complainin g worsening anxiety depression and OCD. Prior to that, he has symptoms was reasonably well controlled with Lexapro 20 daily. Lexapro was weaned of gradually from 05/17/2021 , and patient was put on sertraline 100 mg daily on 05/17/2021 . Today on 06/02/2021 , during encounter, patient states that since he started taking his sertraline 100 mg, he notices very minimal improvemen t. Patient is asking whether we can increase the medication on not.-I am planning to increase sertraline from 100 mg daily to 200 mg daily.-galo in advised patient to talk to and find a counselor therapist. Patient lost the informatio n that I gave last week. Informatio n regarding local therapist again given to patient with phone numbers.ganesh [place] to follow him back in 2-4 weeks. May 17, 2021:Until now, patient was doing well with Lexapro 20 mg daily. For the last 1 week, patient feels more anxious and stressed. He also feels like that he has OCD. He had couple of conflict and arguments with his partner.Ov er the weekend, patient actually started taking 60 mg of Lexapro daily and he called our office yesterday. I immediatel y told him not to take Lexapro 60 mg as the high as does his 20 mg max. Restarted taking 20 mg of Lexapro, but feels like that is not working at all.Plan to discontinu e Lexapro gradually. I do tell patient to take half tablet of Lexapro for 3 days, then stop.The meantime, plan to put patient on sertraline 100 mg daily. Common adverse reviewed and discussed with patient.Al so I think, patient will benefit by having counseling and therapy. Informatio n regarding local therapist and counselor given to patient over the phone.I am planning to follow patient back in 2 weeks. Hypothyroidism [id number] E03.9 August 15, 2021:Isa roach is on levothyrox ine 50 mcg daily.Rece nt labs showed TSH 4.08 and free T4 1.2.Contin ue current medication . March 15, 2021:Isa roach is new to my service.No previous medical record available at this time.Routi ne labs today.Cont inue current medication . Hyperlipidemia [id number] E78.5 August 15, 2021:Recen t labs showed LDL 60, HDL 37, triglyceri db 367 (previousl y it was 565).Isa roach is on fenofibrat e 160 mg daily and atorvastat in 20 mg daily.No change in medication .Continue current medication .Emphasize d healthy diet, daily light exercise. March 15, 2021:Isa roach is new to my service.No previous medical record available at this time.Isa roach states that his lipid profile mainly significan t for elevated triglyceri de.Plan to repeat labs today even though, he is not fasting.Parag morales is on atorvastat in and fenofibrat e. Refill faxed.Emph asized healthy diet, daily light exercise.W ill follow. Essential hypertension [id number] I10 August 15, 2021:Lisin opril was increased from 20 mg daily to 40 mg daily last month on 03/15/2021 .Blood pressure running within normal range.Ree escobar is tolerating the medication well.Empha sized healthy diet, daily light exercise and weight reduction. Will follow. March 15, 2021:Isa roach is new to my service.No previous medical record available at this time.Isa roach's blood pressure noted significan t elevated. Patient also states that last encounter at his previous PCP's office, his blood pressure was also on higher side.Plan to increase lisinopril from 20 mg daily to 40 mg daily. New script faxed to his pharmacy.E mphasized healthy diet, daily light exercise.R outine labs today.I will follow him back in 1-2 months. [id number] ARIA GARCIA MD [facility] [address] [place] [phone] 08/23/2021 13:04:09 08/23/2021 14:24:27 Osteoarthritis of right knee joint [id number] 33871 M17.11 66-year-ol d gentleman with likely intermedia te grade 2 advanced osteoarthr itis of the right knee. He has previously been treated with a series of viscosuppl ementation injections about a year ago that apparently provided very good benefit. He has since transferre d his care here from [facility] to be closer to his mother. Given the good results previously , when to try to get him preapprove d for viscosuppl ementation . Given the absence of overt inflammato ry findings are not sure if corticoste roid injection would proper much benefit at this juncture considerne g the fact that he is essentiall y asymptomat ic. 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 He has stage 1 kidney disease, and appears straight to the care of a nephrologi st May want to try small dose of laxity cam 7.5 as long as his nephrologi st is in agreement. We will follow up on the x-rays is post be getting them today however by the time of this dictation is soft not been obtained. Acquired genu varum [id number] [id number] M21.169 See above Psoriasis [id number] L40.9 Possible diagnosis of psoriasis given pathognomo nora skin lesions, however has not been diagnosed with this condition. Health Concerns Section Related Observation LastModified by Organization Detai ls LastModified Time None Recorded Concern Status LastModified by Organization Details LastModified Time None Recorded Advance Directives Directive None Recorded Payers Insurance Date Sequence Insurance Name Policy Number Policy Mike Covered Member ID Mike Member ID Guarantor Name 01/12/2023 1 [employer] (MEDICARE REPLACEMENT/ADVA NTAGE - PPO) Garfield Wahl [place]quito [id number] Garfield Huddleston 04/27/2022 1 [facility] [employer] [facility] TYPE I (HMO) [id number] Garfield Huddleston [id number] 1 Garfield Huddleston 09/07/2020 1 *SELF PAY* Ro jaylon Wahl Flaquito 04/27/2022 1 [facility] [id number] Garfield Huddleston [id number] 1 Garfield Huddleston Notes Date Note Type Note Provider Name and Address Organization Details Recorded Time 06/23/2021 text/html ANXIETY/DEPRESSI ONRepo rted by PatientHPIFor severity, patient reportsdenies suicidal ideations,able to maintain relationships, anddoes not interfere with activities of daily living. For context, patient reportsno major life stressors. For associated symptoms, patient reportsdenies homicidal ideations,no significant weight gain,no significant weight loss,no visual/auditory hallucinations,no delusions, andno shortness of breath. The patient acknowledges that they can see a clinician in-person in the event of an emergency or as otherwise needed yes Patient consents to having a Telehealth appointment today yes Patients host site is: home. Persons present patient alone My originating site: my office. Person present myself alone This appointment/visit has been conducted using two-way, real-time telehealth video conferencing in which video and audio was used. Piedad Negron MD [address] [place] [address], [phone], [facility] 06/23/2021 14:34:24 07/18/2021 text/html He feels that there is some improvement in his cough.HE was taken off Trelegy and switched to budesonide solution and perforomist benulizer solutionsHe is only using those once a day in the morning He feels that taking these twice a day is an imposition The patient acknowledges that they can see a clinician in-person in the event of an emergency or as otherwise needed yes Patient consents to having a Telehealth appointment today yes Patients host site is: home. Persons present patient alone My originating site: my office. Person present myself alone This appointment/visit has been conducted using two-way, real-time telehealth video conferencing in which audio alone was used due to technical complications despite multiple tries, proceeded with patient consent audio alone on host/patient site. Juani Abrams MD [address] [place] [address], [phone], [facility] 07/24/2021 18:09:59 08/15/2021 text/html This is 66 years old nonsmoker male with multiple medical comorbid conditions comes to the clinic for follow-up. Piedad Negron MD [address] [place] [address], [phone], [facility] 08/15/2021 16:08:16 08/23/2021 text/html KneeReported by PatientHPIFor location, patient reportsrightandmedial. For quality, patient reportsaching,sharp, andfrequent. For severity, patient reportsmoderate. For duration, patient reports9+ years. For timing, patient reportschronic. For context, patient reportsoveruse. For alleviating factors, patient reportsrest,nsaids, andvicosupplement injection. For aggravating factors, patient reportswalking,bending /squatting, andupstairs. For associated symptoms, patient reportsno weakness,no numbness,no tingling,no swelling,no redness,no warmth,no ecchymosis,no catching/locking,no popping/clicking,no buckling,no grinding,no instability,no radiation down leg,no drainage,no fever,no chills,no weight loss, andno change in bowel/bladder habits. For previous surgery, patient reportssurgical procedure: (right knee ganglion cyst excision about 20 years ago). For prior imaging, patient reportsnone. For previous injections, patient reportshelped temporarily(pt has history of cortisone injections as well as a recent 2nd series of viscosupplement injections). For previous pt, patient reportsdid not help. For work related, patient reportsno. ARIA GARCIA MD [address] [place] [address], [phone], [facility] 08/23/2021 16:19:18
== END 2025-01-14 10:01 | disposition home or self-care (01) ==
PROVIDERS: PCP Physician Assistant; Visit Provider Anesthesiology
DX: E11.42 Type 2 diabetes mellitus with diabetic polyneuropathy (principal); G89.4 Chronic pain syndrome
CPT/HCPCS: 99203

== ENCOUNTER → 2025-01-14 09:23 | Outpatient (BNVA) | payer OTHER, SELFPAY | PROVIDERS: PCP Physician Assistant; Visit Provider Anesthesiology | DX: E11.42 Type 2 diabetes mellitus with diabetic polyneuropathy (principal); G89.4 Chronic pain syndrome | CPT/HCPCS: 99202 ==